=== PATIENT | male | born 1995 | race African-American/Black ===

== ENCOUNTER → 2025-01-03 06:36 | Outpatient (CLI) | payer OTHER, SELFPAY ==
--- NOTE | 2025-01-03 06:41 | DI.US.S_ITS ---
PROCEDURE: US SOFT TISSUE ABDOMEN INDICATIONS: nodule growing over last 2 months TECHNIQUE: Real-time focused scanning was performed of the abdomen, with image documentation. COMPARISON: None. FINDINGS/IMPRESSION: Targeted ultrasound of the left flank demonstrates a fat containing, subdermal lesion measuring 1.2 x 0.9 x 1.7 centimeter. There is partial encapsulation. No definite solid components. Findings are consistent with a lipoma. Given interval growth, atypical lipoma or low-grade liposarcoma are considerations. Consider surgical excision versus 3 to six-month follow-up with ultrasound. Dictated by: Elliott Hatch M.D. on 01/03/2025 at 10:03 Approved by: Elliott Hatch M.D. on 01/03/2025 at 10:06
== END ==
LOC: US 06:39
DX: R19.04 Left lower quadrant abdominal swelling, mass and lump (principal); M79.9 Soft tissue disorder, unspecified
CPT/HCPCS: 76705